=== PATIENT | female | born 1955 ===

== ENCOUNTER 2017-01-05 09:09 | Day surgery (SDC) | payer MEDICAID ==
[2017-01-05 09:35] VITALS: BMI 25.4
[2017-01-05 11:27] VITALS: O2SAT 100
[2017-01-05] MEDS ORDERED: Propofol 10 mg/ml Inj (20 ML) ONE (11:31)
--- NOTE | 2017-01-05 11:33 | CP.SDSHP ---
Same Day Surgery H & P - History Proposed Procedure: colonoscopy Pre-Op Diagnosis: h/o colon ulcer - Previous Medical/Surgical History Endocrine/Metabolic: Diabetes Comments: dyslipidemia - Allergies Allergies: Allergies ibuprofen Adverse Reaction (Verified 01/05/17 09:35) NAUSEA - Current Medications Current Medications: see med list - Physical Exam General Appearance: NAD Vital Signs: Vital Signs 01/05/17 01/05/17 09:46 11:25 Temperature 98.2 F 98.2 F Pulse Rate 79 68 Respiratory 17 17 Rate Blood Pressure 114/64 148/79 O2 Sat by Pulse 98 100 Oximetry Mental Status: Alert & Oriented x3 Heart: WNL Lungs: WNL GI: WNL - {Optional Preform as Required} Abdomen: WNL - Impression Impression: 61 year old female with h/o DM, HL, iron deficiency anemia, colon ulcer who presents for surveillance colonoscopy Pt. Evaluated Today:Candidate for Anesthesia & Procedure: Yes - Date & Time Date: 01/05/17 Time: 11:33 Short Stay Discharge - Short Stay Discharge Admitting Diagnosis/Reason for Visit: ULCER OF INTESTINE Disposition: HOME/ ROUTINE
[2017-01-05 13:34] VITALS: BP 125/75; PULSE 70; RESP 12; TEMP 97.2
== END 2017-01-05 13:30 | disposition home or self-care (01) ==
LOC: C.ENDO 09:09
PROVIDERS: ATTEND Internal Medicine Gastroenterology
DX: K63.3 Ulcer of intestine (principal); E11.9 Type 2 diabetes mellitus without complications; E78.5 Hyperlipidemia, unspecified; D50.9 Iron deficiency anemia, unspecified; K64.8 Other hemorrhoids; K52.839 Microscopic colitis, unspecified
CPT/HCPCS: 45380; 82948; 88305; J2704